=== PATIENT | male | born 1970 | race Caucasian/White ===

== ENCOUNTER 2023-01-23 11:45 | Emergency (ER) | payer SELFPAY ==
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
[2023-01-23] MEDS ORDERED: IBUPROFEN 600 MG (MOTRIN) TAB PO ONE (12:15)
[2023-01-23 12:27] VITALS: BP 116/75
== END 2023-01-23 12:26 | disposition home or self-care (01) ==
LOC: EDUNIT# 11:45 → ER 11:48
DX: S62.301A Unspecified fracture of second metacarpal bone, left hand, initial encounter for closed fracture (principal); S05.12XA Contusion of eyeball and orbital tissues, left eye, initial encounter; Z72.0 Tobacco use; V19.9XXA Pedal cyclist (driver) (passenger) injured in unspecified traffic accident, initial encounter
CPT/HCPCS: 29125